=== PATIENT | female | born 1990 | race Caucasian/White ===

== ENCOUNTER → 2018-09-08 09:12 | Outpatient (CLI) | payer OTHER, SELFPAY ==
[2018-09-08 10:16] LABS: Add Manual Diff / Slide Review NO; Basophils Percent Auto 0.9 % (0-2); Eosinophils Percent Auto 2.1 % (2-4); Hematocrit 39.1 % (36-46); Lymphocytes Percent Auto 30.7 % (25-40); Mean Corpuscular HGB Conc 35.7 % (30-36); Mean Corpuscular Hemoglobin 32.4 PG (26-34); Mean Corpuscular Volume 90.9 fL (80-100); Monocytes Percent Auto 6.9 % (3-14); Neutrophils Absolute Auto 6100 /uL (1500-7000); Neutrophils Percent Auto 59.4 % (50-75); Platelet Count 323 X10^3/uL (150-400); White Blood Cell Count 10.3 X10^3/uL (4.5-11.0)
[2018-09-08 11:23] LABS: Appearance Urine UA CLEAR; Bilirubin Urine UA NEGATIVE (NEGATIVE); Color Urine UA YELLOW; Glucose Urine UA TRACE g/dL (Normal); Ketones Urine UA NEGATIVE (NEGATIVE); Leukocyte Esterase Urine UA NEGATIVE (NEGATIVE); Nitrite Urine UA NEGATIVE (Negative); Occult Blood Urine UA 1+ (Negative); Protein Urine UA NEGATIVE (Negative); Specific Gravity Urine UA 1.025 (1.000-1.035); Urobilinogen Urine UA 0.2 E.U./dL (0.2); pH Urine UA 6.5 (4.5-8.0)
[2018-09-08 11:28] LABS: Hepatitis B Surface Antigen NEGATIVE s/c (NEGATIVE)
[2018-09-08 11:50] LABS: HIV 1 and 2 Antibody NEGATIVE (NEGATIVE); Hep C Virus Ab w/Reflex Quant NEGATIVE s/c (NEGATIVE)
[2018-09-11 12:40] LABS: HSV 2 IGG AB < 0.90 index (< 0.90)
[2018-09-11 18:53] LABS: RPR Screen Nonreactive (Nonreactive)
== END ==
PROVIDERS: Visit Provider Specialist
DX: Z34.91 Encounter for supervision of normal pregnancy, unspecified, first trimester (principal)
CPT/HCPCS: 80055; 81003; 86695; 86696; 86703; 86787; 86803; 86850; 86900; 86901; 87077; 87086; 87186

== ENCOUNTER → 2018-11-28 12:16 | Outpatient (CLI) | payer OTHER, SELFPAY ==
[2018-12-03 11:02] LABS: AFP, Serum 37.4 ng/mL; Calc Gestational Age 15.9; Cigarette Smoker N; Donated Egg NOT GIVEN; Donor Egg Age NOT GIVEN; Estriol, Free 0.94 ng/mL; Inhibin A, Dimeric 112 pg/mL; Maternal Ethnicity NOT GIVEN; Maternal Weight 125 lbs; Number of Fetuses 1; Previous Pregnancy Down Syndro NOT GIVEN; hCG, Serum 24.1 IU/mL
== END ==
PROVIDERS: Visit Provider Specialist
DX: Z34.02 Encounter for supervision of normal first pregnancy, second trimester (principal); Z3A.16 16 weeks gestation of pregnancy
CPT/HCPCS: 36415; 82105; 82677; 84702; 86336

== ENCOUNTER 2019-03-11 20:05 | Observation (INO) | payer OTHER, SELFPAY ==
[2019-03-11 20:30] LABS: RBC Urine None Seen (0-5/HPF)
[2019-03-11 20:31] LABS: Appearance Urine UA CLEAR; Bilirubin Urine UA NEGATIVE (NEGATIVE); Color Urine UA YELLOW; Glucose Urine UA NEGATIVE (Negative); Ketones Urine UA NEGATIVE (NEGATIVE); Leukocyte Esterase Urine UA 1+ (NEGATIVE); Nitrite Urine UA NEGATIVE (Negative); Occult Blood Urine UA NEGATIVE (Negative); Protein Urine UA NEGATIVE (Negative); Urobilinogen Urine UA 0.2 E.U./dL (0.2); pH Urine UA 7.5 (4.5-8.0)
[2019-03-11 20:37] LABS: Bacteria Urine Moderate (10-30); Culture Indicated Urine Specimen Cultured; Squamous Epithelial Cell Urine 0-1 /HPF (0-5/HPF); WBC Urine 0-1/HPF (0-5/HPF)
[2019-03-11] MEDS: AMOXICILLIN 250 MG CAPSULE 1000 MG PO (21:13)
== END 2019-03-11 21:23 | disposition home or self-care (01) ==
PROVIDERS: Admitting Provider Family Medicine; Visit Provider Family Medicine
DX: Z34.03 Encounter for supervision of normal first pregnancy, third trimester (principal); Z3A.30 30 weeks gestation of pregnancy
CPT/HCPCS: 81001; 87077; 87086; G0378; G0379

== ENCOUNTER → 2019-04-26 11:03 | Outpatient (CLI) | payer OTHER, SELFPAY ==
[2019-04-27 10:03] LABS: Strep Grp B PCR NEG for Grp B Strep
== END ==
PROVIDERS: Visit Provider Specialist
DX: Z34.03 Encounter for supervision of normal first pregnancy, third trimester (principal); Z3A.37 37 weeks gestation of pregnancy
CPT/HCPCS: 87653

== ENCOUNTER 2019-05-12 09:24 | Inpatient (IN) | payer OTHER, SELFPAY ==
--- NOTE | 2019-05-12 11:41 | PM.OBHP.1 ---
OB HPI Date/Time Date of admission: 05/12/19 Date Patient Seen: 05/12/19 Time Patient Seen: 11:41 History of Present Condition Chief complaint: Observation : 1 Para: 0 Estimated Date of Delivery: 05/16/19 Estimated Gestational Age (weeks): 39 Narrative: Eileen Gonzalez Gus is a 29 year old female admitted with premature rupture membranes Indications Other reason(s) for admission: Premature rupture membranes History of Present care: good care, initiated at week # (8) and number of visits (11) Dating criteria: LMP confirmed by 1st trimester US Ultrasounds: normal mid trimester US Obstetrical complications: none Medical complications: none Preadmission Labs Blood type: AB (+) positive -: Antibody screen: negative, GBS status: negative, HBsAG: negative, HIV: negative and RPR/VDLR: negative -: Rubella: immune and Varicella: immune HCAB: negative Quad screen: Normal 1 hr GTT: 107 Evaluation Evaluation Baseline heart rate: 130 Variability: Moderate (11-25) monitor accelerations: Present monitor decelerations: Episodic Contraction Frequency (minutes): 8 Uterine Contraction Intensity: Mild Category of Tracing: II Cervical dilation (cm): 2 Cervical effacement (%): 80 station: -4 [facility] Medical History (Updated 05/12/19 @ 11:44 by Sigrid De MD) Bipolar disorder in remission (Chronic) Surgical History (Updated 01/23/18 @ 06:12 by Conversion Provider) History of tonsillectomy Meds Home Medications Medication Instructions Recorded Confirmed Type asenapine [Saphris (black ross)] #0 08/28/17 History 1 tab PO DAILY 10/03/18 10/03/18 History vitamin,calcium,svnshspt-xdsd-ymnca acid tablet Allergies Allergy/AdvReac Type Severity Reaction Status Date / Time No Known Drug Allergies Allergy Verified 03/11/19 20:59 Review of Systems Review of Systems Patient has noticed some scotomata but no headaches or epigastric pain. Good movement. Patient had spontaneous rupture membranes at 11:00 p.m. on 05/11/2019 with mild contractions beginning at 3 am on 05/12/2019. All systems reviewed & are unremarkable except as noted in HPI and below Exam Vital Signs (past 8 hours): Blood pressure 126/77, pulse 61, temperature 36.6? Narrative Exam Narrative: HEENT exam within normal limits. Lungs clear to auscultation percussion. Heart is regular rate and rhythm no S3-S4 or murmurs. Abdomen is soft, nontender. Fetus is vertex. Clear amniotic fluid. Extremities without edema and nontender. Assessment and Plan Assessment and Plan Assessment and Plan narrative: 39 week gestation with premature rupture membranes. Due to the patient not being in active labor E out will begin Pitocin augmentation.
--- NOTE | 2019-05-12 11:49 | P.HPOB_ITS ---
OB HPI Date/Time Date of admission: 05/12/19 Date Patient Seen: 05/12/19 Time Patient Seen: 11:41 History of Present Condition Chief complaint: Observation : 1 Para: 0 Estimated Date of Delivery: 05/16/19 Estimated Gestational Age (weeks): 39 Narrative: Eileen Gonzalez Gus is a 29 year old female admitted with premature rupture membranes Indications Other reason(s) for admission: Premature rupture membranes History of Present care: good care, initiated at week # (8) and number of visits (11) Dating criteria: LMP confirmed by 1st trimester US Ultrasounds: normal mid trimester US Obstetrical complications: none Medical complications: none Preadmission Labs Blood type: AB (+) positive -: Antibody screen: negative, GBS status: negative, HBsAG: negative, HIV: negative and RPR/VDLR: negative -: Rubella: immune and Varicella: immune HCAB: negative Quad screen: Normal 1 hr GTT: 107 Evaluation Evaluation Baseline heart rate: 130 Variability: Moderate (11-25) monitor accelerations: Present monitor decelerations: Episodic Contraction Frequency (minutes): 8 Uterine Contraction Intensity: Mild Category of Tracing: II Cervical dilation (cm): 2 Cervical effacement (%): 80 station: -4 [facility] Medical History (Updated 05/12/19 @ 11:44 by Sigrid De MD) Bipolar disorder in remission (Chronic) Surgical History (Updated 01/23/18 @ 06:12 by Conversion Provider) History of tonsillectomy Meds Home Medications Medication Instructions Recorded Confirmed Type asenapine [Saphris (black ross)] #0 08/28/17 History 1 tab PO DAILY 10/03/18 10/03/18 History vitamin,calcium,onhlfnkq-cpjg-gplau acid tablet Allergies Allergy/AdvReac Type Severity Reaction Status Date / Time No Known Drug Allergies Allergy Verified 03/11/19 20:59 Review of Systems Review of Systems Patient has noticed some scotomata but no headaches or epigastric pain. Good movement. Patient had spontaneous rupture membranes at 11:00 p.m. on 0 05/11/2019 with mild contractions beginning at 3 am on 05/12/2019. All systems reviewed & are unremarkable except as noted in HPI and below Exam Vital Signs (past 8 hours): Blood pressure 126/77, pulse 61, temperature 36.6? Narrative Exam Narrative: HEENT exam within normal limits. Lungs clear to auscultation percussion. Heart is regular rate and rhythm no S3-S4 or murmurs. Abdomen is soft, nontender. Fetus is vertex. Clear amniotic fluid. Extremities without edema and nontender. Assessment and Plan Assessment and Plan Assessment and Plan narrative: 39 week gestation with premature rupture membranes. Due to the patient not being in active labor E out will begin Pitocin augmentation.
[2019-05-12] MEDS: LACTATED RINGERS 1,000 ML 100 ML IV ×2 (12:20→21:10)
[2019-05-12] MEDS: OXYTOCIN PREMIX 30 UNIT/500 ML PLAST..BAG IV (12:21)
[2019-05-12 12:28] LABS: Add Manual Diff / Slide Review NO; Basophils Absolute Auto 200 /uL (0-100); Basophils Percent Auto 1.3 % (0-2); Eosinophils Absolute Auto 200 /uL (0-450); Eosinophils Percent Auto 1.4 % (2-4); Hemoglobin 12.2 g/dL (12.0-16.0); Lymphocytes Absolute Auto 2800 /uL (1100-4500); Mean Corpuscular HGB Conc 33.8 % (30-36); Mean Corpuscular Hemoglobin 31.2 PG (26-34); Mean Corpuscular Volume 92.5 fL (80-100); Monocytes Absolute Auto 1100 /uL (0-900); Monocytes Percent Auto 7.6 % (3-14); Neutrophils Absolute Auto 9600 /uL (1500-7000); Neutrophils Percent Auto 69.7 % (50-75); Platelet Count 300 X10^3/uL (150-400); Red Blood Cell Count 3.89 X10^6/uL (4.0-5.2); White Blood Cell Count 13.8 X10^3/uL (4.5-11.0)
[2019-05-12 13:39] VITALS: BP 125/81
[2019-05-12 13:42] VITALS: BP 125/81
[2019-05-13] MEDS: LACTATED RINGERS 500 ML 1000 ML IV (01:30)
[2019-05-13] MEDS: CEFAZOLIN 2 GM/100 ML FROZ.PIGGY IV (02:07)
[2019-05-13] MEDS: LACTATED RINGERS 1,000 ML 100 ML IV (03:06)
--- NOTE | 2019-05-13 07:00 | PM.OBPRVD ---
Events: Prolonged Rupture of Membrane Delivery date: 05/13/19 Delivery augmentation: pitocin Delivery monitor: external FHT and external uterine Route of delivery: L&D Laceration Description: Periurethral - 1st Degree (No suture required) Estimated blood loss (mL): 100 Anesthesia type: Epidural Narrative: Patient arrived on Labor delivery with premature rupture membranes not in labor. She was started on Pitocin augmentation after 12 hours of rupture membranes. She received an epidural catheter for pain control. She had intermittent prolonged decelerations. These responded to position changes, O2, and fluid bolus. The patient had spontaneous vaginal delivery. The was placed on maternal abdomen. After the cord stopped pulsating the cord was clamped, cut, and cord bloods obtained. The placenta delivered spontaneously, intact, with 3 vessels. Both and mother doing well. Estimated blood loss 100 cc. Baby 1: gender: Male Presentation: vertex position: Right Occiput Anterior Placenta delivery description: Spontaneous cord vessel description: 3 Vessels score (1 min): 9 score (5 min): 9 Plan for aftercare: Routine care
[2019-05-13] MEDS: ONDANSETRON 4 MG/2 ML INJ IV (08:34)
[2019-05-13] MEDS: IBUPROFEN 600 MG TABLET PO (19:50)
[2019-05-14] MEDS: IBUPROFEN 600 MG TABLET PO (02:03)
[2019-05-14 05:49] LABS: Hematocrit 32.4 % (36-46); Mean Corpuscular Hemoglobin 31.6 PG (26-34); Mean Corpuscular Volume 92.9 fL (80-100); Platelet Count 254 X10^3/uL (150-400); Red Blood Cell Count 3.49 X10^6/uL (4.0-5.2); Red Cell Distribution Width 14.1 % (11.6-14.8)
[2019-05-14 05:51] LABS: Add Manual Diff / Slide Review YES
[2019-05-14 06:38] LABS: Dohle Bodies 1+; Neutrophils Absolute Manual 19500 /uL (3000-5900); Total Cells Counted 100
--- NOTE | 2019-05-14 09:09 | PM.OBDS.1 ---
Discharge Providers Date of admission: 05/12/19 09:24 Discharge Date: 05/14/19 Consults: 05/13/19 08:53 Consult to Cardiac Monitor Technician Routine Comment: Discharge provider: Sigrid De MD Summary Date Patient Seen: 05/14/19 Time Patient Seen: 09:10 Procedures: Pitocin, epidural catheter, spontaneous vaginal delivery Hospital Course: Patient had premature rupture membranes. She was started on Pitocin for augmentation of labor due to prolonged rupture membranes. She received an epidural catheter for pain control. After 24 hours of rupture she received IV antibiotics. She had a spontaneous vaginal delivery. She is having some difficulty with otherwise is urinating and ambulating well with mild lochia. No signs or symptoms of preeclampsia. Peripartum Data Delivery Method: Natural Vaginal Laceration description: Periurethral - 1st Degree complications: none 1: Gender: Male Disposition of : home Discharge Diagnosis (1) Vaginal delivery: Status: Acute Status at Discharge Cognitive/behavioral status at discharge: oriented Functional status at discharge: independent ambulation Overall status at discharge: patient is progressing back to baseline Time Spent with Patient Total time spent providing and/or coordinating discharge services: Objective Labs Result Diagrams: 05/14/19 05:15 Labs: Laboratory Results - last 24 hr 05/14/19 05:15 WBC 26.0 H D RBC 3.49 L Hgb 11.0 L Hct 32.4 L MCV 92.9 MCH 31.6 MCHC 34.0 RDW 14.1 Plt Count 254 Neut % (Auto) Not Reportable Lymph % (Auto) Not Reportable [place] % (Auto) Not Reportable Eos % (Auto) Not Reportable Baso % (Auto) Not Reportable Lymph # (Auto) Not Reportable [place] # (Auto) Not Reportable Baso # (Auto) Not Reportable Total Counted 100 Seg Neutrophils % 66.0 Band Neutrophils % 9.0 H Lymphocytes % (Manual) 21.0 L Monocytes % (Manual) 4.0 Neutrophils # (Manual) [id number] H Dohle Bodies 1+ H RBC Morphology See below Exam Vital Signs (past 8 hours): Blood pressure 109/63. Pulse of 76, temperature 97.6? Narrative Exam Narrative: Abdomen is soft, nontender. Uterus is firm, at U, nontender. Mild lochia. Extremities without edema and nontender. Patient's blood type is AB positive and she is rubella immune. She had refused the Tdap in the 3rd trimester. Discharge Plan Discharge Plan Patient Disposition: Home Discharge Med Rec/Prescriptions Prescriptions: Continued prenat.vits,yahir,dog-ozmw-hmidf tablet 1 tab PO DAILY RF: 0 Follow up/Referrals: Sigrid De MD [Physician] - 1 Month Provider Discharge Instructions Diet: Regular Activity: Nothing in vagina for 4 weeks Skin/Wound/Dressing Care Report to your healthcare provider any signs of infection, such as:: chills, fever Discharge Data Attending Provider: Sigrid De Admit Date/Time: 05/12/19 09:24
--- NOTE | 2019-05-14 09:12 | P.DS_ITS ---
Discharge Providers Date of admission: 05/12/19 09:24 Discharge Date: 05/14/19 Consults: 05/13/19 08:[address] Manager Routine Comment: Discharge provider: Sigrid De MD Summary Date Patient Seen: 05/14/19 Time Patient Seen: 09:10 Procedures: Pitocin, epidural catheter, spontaneous vaginal delivery Hospital Course: Patient had premature rupture membranes. She was started on Pitocin for augmentation of labor due to prolonged rupture membranes. She received an epidural catheter for pain control. After 24 hours of rupture she received IV antibiotics. She had a spontaneous vaginal delivery. She is having some difficulty with otherwise is urinating and ambulating well with mild lochia. No signs or symptoms of preeclampsia. Peripartum Data Delivery Method: Natural Vaginal Laceration description: Periurethral - 1st Degree complications: none 1: Gender: Male Disposition of : home Discharge Diagnosis (1) Vaginal delivery: Status: Acute Status at Discharge Cognitive/behavioral status at discharge: oriented Functional status at discharge: independent ambulation Overall status at discharge: patient is progressing back to baseline Time Spent with Patient Total time spent providing and/or coordinating discharge services: Objective Labs Result Diagrams: 05/14/19 05:15 Labs: Laboratory Results - last 24 hr 05/14/19 05:15 WBC 26.0 H D RBC 3.49 L Hgb 11.0 L Hct 32.4 L MCV 92.9 MCH 31.6 MCHC 34.0 RDW 14.1 Plt Count 254 Neut % (Auto) Not Reportable Lymph % (Auto) Not Reportable [place] % (Auto) Not Reportable Eos % (Auto) Not Reportable Baso % (Auto) Not Reportable Lymph # (Auto) Not Reportable [place] # (Auto) Not Reportable Baso # (Auto) Not Reportable Total Counted 100 Seg Neutrophils % 66.0 Band Neutrophils % 9.0 H Lymphocytes % (Manual) 21.0 L Monocytes % (Manual) 4.0 Neutrophils # (Manual) [id number] H Dohle Bodies 1+ H RBC Morphology See below Exam Vital Signs (past 8 hours): Blood pressure 109/63. Pulse of 76, temperature 97.6? Narrative Exam Narrative: Abdomen is soft, nontender. Uterus is firm, at U, nontender. Mild lochia. Extremities without edema and nontender. Patient's blood type is AB positive and she is rubella immune. She had refused the Tdap in the 3rd trimester. Discharge Plan Discharge Plan Patient Disposition: Home Discharge Med Rec/Prescriptions Prescriptions: Continued prenat.vits,yahir,hep-bkdd-tshzs tablet 1 tab PO DAILY RF: 0 Follow up/Referrals: Sigrid De MD [Physician] - 1 Month Provider Discharge Instructions Diet: Regular Activity: Nothing in vagina for 4 weeks Skin/Wound/Dressing Care Report to your healthcare provider any signs of infection, such as:: chills, fever Discharge Data Attending Provider: Sigrid De Admit Date/Time: 05/12/19 09:24
== END 2019-05-14 17:30 | disposition home or self-care (01) | DRG 807 ==
PROVIDERS: Admitting Provider Specialist; Visit Provider Specialist
DX: O42.02 Full-term premature rupture of membranes, onset of labor within 24 hours of rupture (principal); Z37.0 Single live birth; Z3A.39 39 weeks gestation of pregnancy; O71.82 Other specified trauma to perineum and vulva
CPT/HCPCS: 01967; 59050; 59400; 84112; 85025; 86850; 86900; 86901; G0379; J0690; J2405; J2590